=== PATIENT | female | born 1990 | race Caucasian/White ===

== ENCOUNTER 2020-06-21 18:54 | Emergency (ER) | payer BC ==
[~2020-06-21] VITALS: Ht 157.5 cm; Wt 77.1 kg
[2020-06-21 19:17] LABS: URINE BILIRUBIN NEGATIVE (Negative); URINE BLOOD 1+ (Negative); URINE CLARITY CLEAR; URINE COLOR YELLOW; URINE GLUCOSE-RANDOM NEGATIVE (Negative); URINE KETONES NEGATIVE (Negative); URINE LEUKOCYTES-REFLEX TRACE (Negative); URINE NITRITE-REFLEX NEGATIVE (Negative); URINE PROTEIN NEGATIVE (Negative); URINE SPECIFIC GRAVITY 1.015 (1.005-1.030)
[2020-06-21 19:20] LABS: ABSOLUTE BASOPHILS 0.1 thou/uL (0.0-0.2); ABSOLUTE EOSINOPHILS 0.1 thou/uL (0.0-0.7); ABSOLUTE LYMPHOCYTES 2.2 thou/uL (0.8-5.3); ABSOLUTE NEUTROPHILS 9.1 thou/uL (1.6-8.1); BASOPHILS 0.8 %; EOSINOPHILS 0.6 %; HEMATOCRIT 37.2 % (37.0-47.0); LYMPHOCYTES 17.9 %; MCH 27.2 pg (26.0-34.0); MCHC 32.4 g/dL (28.0-37.0); MCV 84.1 fL (80.0-100.0); MONOCYTES 8.2 %; MPV 7.1 fl. (7.2-11.1); NUCLEATED RBCS 0 /100WBC; PLATELET COUNT* 434 thou/uL (150-400); POLYS 72.5 %; RBC 4.42 mil/uL (4.20-5.00); RDW-CV 15.8 % (10.5-14.5); WBC 12.5 thou/uL (4.0-11.0)
[2020-06-21 19:29] LABS: SQUAMOUS >10 Many /LPF (0-3)
[2020-06-21 19:30] LABS: CREATININE 0.6 mg/dL (0.6-1.3); POTASSIUM 3.5 mmol/L (3.5-5.1)
[2020-06-21 19:30] LABS: BACTERIA-REFLEX >30 Many /HPF (None Seen); CASTS None Seen /LPF (None Seen); CRYSTALS None Seen /LPF (None Seen); MUCUS None Seen strn/LPF (None Seen); URINE RBC 0-2 Rare /HPF (0-2); URINE WBC-REFLEX 0-5 Rare /HPF (0-5)
[2020-06-21 19:35] LABS: ALBUMIN 3.1 g/dL (3.4-5.0); TOTAL BILIRUBIN 0.2 mg/dL (<0.1-1.0); TOTAL PROTEIN 7.7 g/dL (6.4-8.2)
[2020-06-21 19:41] LABS: PROTIME 9.9 Seconds (9.20-11.50)
[2020-06-21 19:46] LABS: INR < 0.9
[2020-06-21 22:29] VITALS: BP 110/69
== END 2020-06-21 22:29 | disposition home or self-care (01) ==
LOC: M.ERS 18:54
PROVIDERS: Nurse Practitioner Family
DX: O99.351 Diseases of the nervous system complicating pregnancy, first trimester (principal); G43.909 Migraine, unspecified, not intractable, without status migrainosus; Z90.49 Acquired absence of other specified parts of digestive tract; Z98.890 Other specified postprocedural states; Z3A.12 12 weeks gestation of pregnancy

== ENCOUNTER 2021-03-29 16:18 | Emergency (ER) | payer BC ==
[~2021-03-29] VITALS: Ht 157.5 cm; Wt 77.1 kg
[2021-03-29 18:45] VITALS: BP 130/87
== END 2021-03-29 18:46 | disposition left against medical advice (07) ==
LOC: M.ERS 16:18
DX: R06.02 Shortness of breath (principal); Z53.21 Procedure and treatment not carried out due to patient leaving prior to being seen by health care provider